=== PATIENT | male | born 1965 | race Caucasian/White ===

== ENCOUNTER 2017-12-28 05:52 | Inpatient (IN) | payer BC, OTHER ==
[2017-12-28] MEDS ORDERED: TRANEXAMIC ACID 1,000 MG in NS (SYRINGE) 50 ML IV ONE (06:00)
[2017-12-28] MEDS ORDERED: *PREOP 1000MG*TRANEX ACID/NS 100 ML IV ONE (06:00)
[2017-12-28] MEDS ORDERED: ceFAZolin 2 GM/DEXTROSE 100 ML IV ONE (06:26)
[2017-12-28] MEDS ORDERED: fentaNYL 50 MCG in SYRINGE INTRATHECAL 1 SYR IT ONE (06:26)
[2017-12-28] MEDS ORDERED: GABAPENTIN 300 MG CAP PO ONE (06:26)
[2017-12-28] MEDS ORDERED: ACETAMINOPHEN 500 MG TAB PO ONE (06:26)
[2017-12-28] MEDS ORDERED: morphINE PF 0.2 MG in SYRINGE INTRATHECAL 1 SYR IT ONE (06:26)
[2017-12-28] MEDS ORDERED: LR 1,000 ML IV ONE (06:33)
[2017-12-28] MEDS ORDERED: CHLORHEXIDINE GLUC HIBICLENS 118 ML BTL TP ONE (06:48)
[2017-12-28] MEDS ORDERED: BUPIVACAINE 0.25% 30 ML SDV ONE (06:48)
[2017-12-28] MEDS ORDERED: THROMBIN (BOVINE) 5,000 UNIT VIAL TP ONE (06:49)
[2017-12-28] MEDS ORDERED: BACITRACIN 50,000 UNITS/10 ML SYR IRR ONE ×2 (06:49→09:20)
[2017-12-28] MEDS ORDERED: EPINEPHrine 1 MG/ML INJ ONE (06:49)
[2017-12-28] MEDS ORDERED: CITRATE DEXTROSE SOLN 500 ML BAG ONE (06:49)
--- NOTE | 2017-12-28 06:50 | PDHPUP ---
History & Physical Update H&P update statement: This history and physical update is based on an assessment of the patient which was completed after admission or registration (within 24 hours), but prior to the surgery/procedure. H&P update: H&P reviewed & patient examined, no change in patient's condition since H&P completed
[2017-12-28] MEDS ORDERED: MIDAZOLAM 2 MG/2 ML VIAL IVP ONE (07:12)
--- NOTE | 2017-12-28 07:13 | PDANEPAE ---
ANE History of Present Illness spinal stenosis ANE Past Medical History - Cardiovascular History Hx Hypertension: No Hx Arrhythmias: No Hx Chest Pain: No Hx Coronary Artery / Peripheral Vascular Disease: No Hx CHF / Valvular Disease: No Hx Palpitations: No - Pulmonary History Hx COPD: No Hx Asthma/Reactive Airway Disease: No Hx Recent Upper Respiratory Infection: No Hx Oxygen in Use at Home: No Hx Sleep Apnea: Yes Sleep Apnea Screening Result - Last Documented: Positive Pulmonary History Comment: [facility]ILSON USES C-PAP INSTRUCTED TO BRING DOS - Neurologic History Hx Cerebrovascular Accident: No Hx Seizures: No Hx Dementia: No - Endocrine History Hx Diabetes: No - Renal History Hx Renal Disorders: No - Liver History Hx Hepatic Disorders: No - Neurological & Psychiatric Hx Hx Neurological and Psychiatric Disorders: No - Cancer History Hx Cancer: No - Congenital Disorder History Hx Congenital Disorders: No - GI History Hx Gastrointestinal Disorders: No - Other Health History Other Health History: POSTERIOR NECK PAIN WITH RADIATION TO SCAPULA AND DOWN BACK OF ARM. STERIOD INJECTION 09/2017. FORAMINAL STENOSIS/DJD. UPPER RT TOOTH IS A CROWN - Chronic Pain History Chronic Pain: Yes (LT LEG) - Surgical History Prior Surgeries: LAMINECTOMIES X3 LAST 2013. RT ANKLE ORIF. RT KNEE SCOPE. NASAL FX ANE Review of Systems Review of Systems: - Exercise capacity METS (RN): 4 METS ANE Patient History - Allergies Allergies/Adverse Reactions: No Known Allergies Allergy (Verified 12/28/17 06:59) - Home Medications Home Medications: Armodafinil [Nuvigil 150mg] 150 mg PO DAILY10 12/14/17 [Last Taken 12/26/17] Herbals/Supplements -Info Only 1 ea PO DAILY 12/14/17 [Last Taken 12/21/17] Naproxen 500 mg PO TID 12/14/17 [Last Taken 12/21/17] buPROPion XL [Wellbutrin Xl] 150 mg PO HS 12/14/17 [Last Taken 12/26/17] - NPO status NPO Since - Liquids (Date): 12/27/17 NPO Since - Liquids (Time): 22:00 NPO Since - Solids (Date): 12/27/17 NPO Since - Solids (Time): 22:00 - Smoking Hx Smoking Status: Former smoker ANE Labs/Vital Signs - Vital Signs Blood Pressure: 129/79 Heart Rate: 77 Respiratory Rate: 16 O2 Sat (%): 99 Height: 172.72 cm Weight: 99.79 kg ANE Physical Exam - Airway Neck exam: FROM Mouth exam: normal dental/mouth exam - Pulmonary Pulmonary: no respiratory distress - Cardiovascular Cardiovascular: regular rate and rhythym - ASA Status ASA Status: II ANE Anesthesia Plan Anesthesia Plan: general endotracheal anesthesia
[2017-12-28] MEDS ORDERED: fentaNYL 100 MCG/2 ML INJ ONE ×3 (07:15→10:41)
[2017-12-28] MEDS ORDERED: HYDROmorphONE/DILAUDID 2 MG/ML INJ ONE ×2 (07:15→11:38)
[2017-12-28] MEDS ORDERED: PROPOFOL 200 MG/20 ML VIAL ONE (07:16)
[2017-12-28] MEDS ORDERED: KETAMINE 500 MG/10 ML VIAL ONE (07:16)
[2017-12-28] MEDS ORDERED: PROPOFOL/EMULSION 500 MG/50 ML BOTTLE IV ONE (07:16)
[2017-12-28] MEDS ORDERED: DEXAMETHASONE 4 MG/ML VIAL ONE (07:19)
[2017-12-28] MEDS ORDERED: ROCURONIUM 50 MG/5 ML VIAL ONE (07:19)
[2017-12-28] MEDS ORDERED: LIDOCAINE 2% 2 ML INJ ONE ×2 (07:19→07:24)
[2017-12-28] MEDS ORDERED: ONDANSETRON 4 MG/2 ML VIAL ONE (07:19)
[2017-12-28] MEDS ORDERED: PROMETHAZINE HCL 25 MG/ML INJ IVP PRN (11:02)
[2017-12-28] MEDS ORDERED: HYDROmorphONE/DILAUDID 1 MG/ML INJ IVP PRN (11:02)
[2017-12-28] MEDS ORDERED: NALOXONE HCL 0.4 MG/ML INJ IVP PRN ×2 (11:02→13:09)
[2017-12-28] MEDS ORDERED: ONDANSETRON 4 MG/2 ML VIAL IVP PRN ×2 (11:02→13:09)
[2017-12-28] MEDS ORDERED: fentaNYL 100 MCG/2 ML INJ IVP PRN (11:02)
[2017-12-28] MEDS ORDERED: diphenhydrAMINE 25 MG CAP PO PRN (13:09)
[2017-12-28] MEDS ORDERED: LACTULOSE 20 GM/30 ML UDCUP PO PRN (13:09)
[2017-12-28] MEDS ORDERED: MAGNESIUM HYDROXIDE 30 ML UDCUP PO PRN (13:09)
[2017-12-28] MEDS ORDERED: BISACODYL 10 MG SUPP PR PRN (13:09)
[2017-12-28] MEDS ORDERED: morphINE PCA 30 MG/30 ML PCA IV PRN (13:09)
[2017-12-28] MEDS ORDERED: NS 1,000 ML IV SCH (13:15)
--- NOTE | 2017-12-28 13:16 | SOAPPROG ---
SOAP Progress Note Assessment/Plan: Assessment: 52 yo sp L3-S1 TLIF Plan: stable to 3N LSO brace when out of bed please call with neuro changes 12/28/17 13:13 Subjective: + back pain, no leg pain Objective: Vital Signs Temp Pulse Resp BP Pulse Ox 36.4 C 77 16 129/79 H 99 12/28/17 06:42 12/28/17 07:13 12/28/17 07:13 12/28/17 07:13 12/28/17 07:13 somnolent PERRL, no facial droop DIMAS x4 + light touch ICD10 Worksheet Patient Problems: Problems Problem Status Onset Fusion of spine of cervical region Acute - ICD10 Problem Qualifiers (1) Fusion of spine of cervical region
--- NOTE | 2017-12-28 13:20 | POSTANESTH ---
Post Anesthetic Evaluation Cardiovascular Status: Normal, Stable Respiratory Status: Normal, Stable Level of Consciousness/Mental Status: Can Participate in Eval Pain Control: Adequate, Prn Tx Ordered Nausea/Vomiting Control: Adequate, Prn Tx Ordered Complications Possibly Related to Anesthesia: None Noted
--- NOTE | 2017-12-28 14:29 | GOP ---
[f rep st] OPERATIVE REPORT DATE OF OPERATION: 12/28/2017 SURGEON: Garrison Duron MD NEUROSURGEON: Garrison Duron. DATA DESIGNER: Justin Fernandes. ANESTHESIA: General endotracheal. PREOPERATIVE DIAGNOSIS: 1. Severe multilevel lumbar degenerative joint disease with severe neuroforaminal encroachment and c entral canal stenosis. 2. Failed back surgery syndrome, status post prior laminectomies and intractable low back pain, and left greater than right lower extremity radicular pain. 3. Failed conservative care. POSTOPERATIVE DIAGNOSIS: 1. Severe multilevel lumbar degenerative joint disease with severe neuroforaminal encroachment and c entral canal stenosis. 2. Failed back surgery syndrome, status post prior laminectomies and intractable low back pain, and left greater than right lower extremity radicular pain. 3. Failed conservative care. PROCEDURE PERFORMED: 1. Left-sided far lateral transpedicular decompression at the L3-4, L4-5, and L5-S1 levels with L3 t hrough S1 posterior segmental (pedicle screw and axial device) fixation and posterolateral fusion wit h local autograft, bone morphogenic protein, and morselized allograft. 2. L3-4, L4-5, and L5-S1 posterior/transforaminal lumbar interbody fusion with 2 structural PEEK int erbody spacers, local autograft, and bone morphogenic protein. 3. Use of intraoperative microscopy, fluoroscopy, and computer volumetric stereotactic navigation wi th intraoperative neurophysiologic testing. 4. Injection of intrathecal narcotic analgesics. FINDINGS: ESTIMATED BLOOD LOSS: 600 cc. INDICATIONS: The patient is a 52-year-old man with a history of prior lumbar laminectomies and intra ctable low back pain and left lower extremity radicular pain secondary to severe multilevel lumbar de generative joint disease and severe/critical neuroforaminal encroachment. He has failed extensive co nservative care and presents now for surgical decompression (redo) and stabilization/fusion. DESCRIPTION OF PROCEDURE: After informed consent was obtained, the patient was taken to the operatin g room, placed in the prone position on the Rikki table. The lumbosacral area was prepped and drap ed in a sterile fashion. After fluoroscopic localization of the correct levels, the subcutaneous and intramuscular tissues were infiltrated with local anesthesia. A midline linear incision was then cr eated over the L3 to S1 spinous processes. This was carried down to the fascial layer which was inci sed using the monopolar electrocautery and carried in the subfascial plane along the spinous processe s, out the lamina bilaterally. Intraoperative fluoroscopy was again utilized to verify the correct l evels. Note that there was only spinous processes at that rostral and caudal ends of the incision, a nd the L3-4 levels had wide laminectomy defects. This made the exposure very difficult and time cons uming, but with meticulous dissection, we did avoid any CSF leaks. Following reverification of the a ppropriate levels, the dissection was carried out over the facet joints. The microscope was then bro ught in and left-sided far lateral transpedicular decompressions were performed at the L3-4, L4-5, an d L5-S1 levels. There was an extensive amount of scar tissue, and the exposure and decompression wer e extremely difficult, the neuroforamen were very tight. Following adequate decompression, the [facility] Neuronavigational System was brought in and using computer volumetric stereotactic navigation, ped icle screws were placed at L3, L4, L5, and S1 bilaterally. Each individual screw was tested neurophy siologically with monopolar electrostimulation and interpretation of the potentials by the surgeon. Serial rods were then placed first at L5-S1, then at L4-5, then at L3-4, during which the levels were individually distracted and complete diskectomies were performed with preparation of the endplates a nd placement of 2 structural PEEK interbody spacers, local autograft, and bone morphogenic protein fo r L3-4, L4-5, and L5-S1 posterior/transforaminal lumbar interbody fusions. The short rods were then removed and longer rods with maximal lordosis were then placed and secured under a slight amount of c ompression in order to facilitate bony union and to minimize the potential for posterior graft migrat ion. 200 mcg of Duramorph along with 50 mcg of fentanyl were then injected intrathecally for postope rative pain control. The remaining lamina and facet joints and transverse processes were then extens ively decorticated, and the residual local autograft along with bone morphogenic protein and morseliz ed autograft were placed out laterally for a posterolateral fusion from L3 to S1. The subcutaneous a nd intramuscular tissues were re-infiltrated with local anesthesia. A drain was placed, and the woun d was closed in a layered fashion using interrupted Vicryl sutures followed by Steri-Strips on the sk in. COMPLICATIONS: None. DISPOSITION: The patient is currently in the process of being repositioned for extubation. /[id number]/MODL
[2017-12-28] MEDS: ACETAMINOPHEN 500 MG TAB PO SCH ×2 (14:51→21:17)
[2017-12-28] MEDS: GABAPENTIN 300 MG CAP PO SCH ×2 (14:51→21:17)
[2017-12-28] MEDS: ceFAZolin 2 GM/DEXTROSE 100 ML IV SCH ×2 (16:53→23:07)
[2017-12-28] MEDS: POLYETHYLENE GLYCOL 3350 17 GM PKT PO SCH ×2 (16:53→21:15)
[2017-12-28] MEDS: ONDANSETRON DISINTEGRATING 4 MG TAB PO PRN (17:25)
[2017-12-28] MEDS: FAMOTIDINE 20 MG TAB PO SCH (21:17)
[2017-12-28] MEDS: buPROPion XL 150 MG TAB PO SCH (21:17)
[2017-12-28] MEDS: SENNOSIDES/DOCUSATE SODIUM TAB PO SCH (21:17)
[2017-12-28] MEDS: morphINE SR 15 MG TAB PO SCH (23:06)
[2017-12-29] MEDS: GABAPENTIN 300 MG CAP PO SCH ×3 (05:06→22:35)
[2017-12-29] MEDS: ACETAMINOPHEN 500 MG TAB PO SCH ×3 (05:51→22:35)
[2017-12-29 06:06] LABS: PLATELET COUNT 132 10^3/uL (150-400)
--- NOTE | 2017-12-29 07:51 | NEUSURGPN ---
Assessment/Plan: Assessment: 52 yo sp L3-S1 TLIF POD#1 Plan: PT/OT and mobilize today Pain management - cont current regimen TEDs, SCDs, lovenox to begin today Brace when OOB Post op xrays pending DC rudolph today Continue SHARONA drain - 500cc out since sx Call NS with any issues D/w Dr Harris Subjective: Pt resting in bed, slept well. Chart reviewed and d/w RN. Objective: AAOx3 NAD VSS MAEx4 Motor 5/5 BLE +LT Sharona drain serosang Urinary Catheter in Place: Yes Urinary Catheter Indication: Other (Use Comment) (to be removed today) Catheter Insertion Date: 12/28/17 - Physician Discussed Patient with : Oliverio Neurosurgery Physical Exam - Vitals, I&O, Labs I and O 12/28/17 12/29/17 12/30/17 05:59 05:59 05:59 Intake Total 2900 Output Total 4550 325 Balance -1650 -325 Weight 99.79 kg Intake: Oral (ml) 2900 Output: Urine (ml) 3325 300 Catheter 3325 300 Estimated Blood Loss (ml) 750 SHARONA Drain Output (ml) 475 25 #1 Left Posterior Back 475 25 Rikki Calix Vital Signs Temp Pulse Resp BP Pulse Ox 36.7 C 83 16 98/57 L 100 12/29/17 04:00 12/29/17 04:00 12/29/17 04:00 12/29/17 04:00 12/29/17 04:00 Laboratory Results 12/29/17 04:35 12/29/17 04:35 ICD10 Worksheet Patient Problems: Problems Problem Status Onset Fusion of spine of cervical region Acute
[2017-12-29] MEDS ORDERED: NS 500 ML IV PRN (07:53)
[2017-12-29] MEDS: POLYETHYLENE GLYCOL 3350 17 GM PKT PO SCH ×3 (09:26→22:37)
[2017-12-29] MEDS: SENNOSIDES/DOCUSATE SODIUM TAB PO SCH ×2 (09:26→22:34)
[2017-12-29] MEDS: FAMOTIDINE 20 MG TAB PO SCH ×2 (09:27→22:36)
[2017-12-29] MEDS: ENOXAPARIN 40 MG/0.4 ML SYR SC SCH (09:27)
[2017-12-29] MEDS: morphINE SR 15 MG TAB PO SCH (09:46)
--- NOTE | 2017-12-29 10:17 | ASMTCMCOM ---
CM Note CM Note Notes: Patient is POD 1 L3-S1 TLIF. He is normally independent - lives with and is employed. OT has cleared him for home; PT eval pending. Patient is amenable to home care if recommended. Case Management will follow. Current CM Discharge plan: home independent v home PT Date Signed: 12/29/2017 10:16 AM Electronically Signed By:Deidre Bueno RN
[2017-12-29] MEDS: Armodafinil [Nuvigil 150mg] 150 MG PO SCH (10:54)
[2017-12-29] MEDS: METHOCARBAMOL 750 MG TAB PO PRN ×2 (10:54→18:40)
--- NOTE | 2017-12-29 12:16 | PDMN ---
Medical Necessity Medical necessity: Pt meets INPT criteria [place] [facility] [place]bar [place] ( INPT only surgery).
[2017-12-29] MEDS: oxyCODONE IR 5 MG TAB PO PRN ×4 (15:04→22:38)
[2017-12-29] MEDS: buPROPion XL 150 MG TAB PO SCH (22:34)
[2017-12-30] MEDS: METHOCARBAMOL 750 MG TAB PO PRN ×4 (05:15→21:54)
[2017-12-30] MEDS: GABAPENTIN 300 MG CAP PO SCH ×3 (05:16→21:55)
[2017-12-30] MEDS: ACETAMINOPHEN 500 MG TAB PO SCH ×3 (05:18→22:33)
[2017-12-30] MEDS: ENOXAPARIN 40 MG/0.4 ML SYR SC SCH (08:39)
[2017-12-30] MEDS: oxyCODONE IR 5 MG TAB PO PRN ×3 (08:40→19:42)
[2017-12-30] MEDS: SENNOSIDES/DOCUSATE SODIUM TAB PO SCH ×2 (08:42→19:43)
[2017-12-30] MEDS: POLYETHYLENE GLYCOL 3350 17 GM PKT PO SCH ×3 (08:42→21:55)
[2017-12-30] MEDS: FAMOTIDINE 20 MG TAB PO SCH ×2 (08:42→19:43)
[2017-12-30] MEDS: Armodafinil [Nuvigil 150mg] 150 MG PO SCH (08:48)
--- NOTE | 2017-12-30 10:07 | SOAPPROG ---
SOAP Progress Note Assessment/Plan: Assessment: 52 yo POD #2 L3-S1 TLIF Plan: stable and doing well overall :) PT/OT SHARONA x 1 LSO brace when out of bed post op x-rays look great scd/nae/lovenox for dvt prophylaxis dc home later today if constipation improves please call with neuro changes discussed with Dr Rae 12/28/17 13:13 12/30/17 10:05 Subjective: back pain improving, leg pain better than before surgery, no weakness. Objective: Vital Signs Temp Pulse Resp BP Pulse Ox 36.6 C 83 16 137/79 H 90 L 12/30/17 08:00 12/30/17 08:00 12/30/17 08:00 12/30/17 08:00 12/30/17 08:00 Laboratory Results 12/29/17 04:35 12/29/17 04:35 12/29/17 12/30/17 12/31/17 05:59 05:59 05:59 Intake Total 2900 2900 Output Total 4550 1980 40 Balance -1650 920 -40 AAOx4, +FC PERRL, EOMI, no facial droop 5/5 + Light touch C/D/I ICD10 Worksheet Patient Problems: Problems Problem Status Onset Fusion of spine of cervical region Acute - ICD10 Problem Qualifiers (1) Fusion of spine of cervical region
[2017-12-30] MEDS: buPROPion XL 150 MG TAB PO SCH (19:42)
[2017-12-31] MEDS: oxyCODONE IR 5 MG TAB PO PRN ×6 (01:25→23:50)
[2017-12-31] MEDS: ACETAMINOPHEN 500 MG TAB PO SCH ×3 (06:19→23:03)
[2017-12-31] MEDS: GABAPENTIN 300 MG CAP PO SCH ×3 (06:20→22:09)
--- NOTE | 2017-12-31 08:53 | SOAPPROG ---
SOAP Progress Note Assessment/Plan: Assessment: 52 yo POD #3 L3-S1 TLIF Plan: stable and doing well overall :) Will follow left groin pain to see if this improves over the course of they day. If not, then we will get a CT scan of lumbar spine. PT/OT SHARONA x 1 LSO brace when out of bed post op x-rays look great scd/nae/lovenox for dvt prophylaxis dc home later today if constipation improves please call with neuro changes discussed with Dr Rae 12/28/17 13:13 12/30/17 10:05 12/31/17 08:52 Subjective: back pain improving, pain in left groin. no leg weakness. Objective: Vital Signs Temp Pulse Resp BP Pulse Ox 37.3 C 99 14 109/72 95 12/31/17 08:00 12/31/17 08:00 12/31/17 08:00 12/31/17 08:00 12/31/17 08:00 Laboratory Results 12/29/17 04:35 12/29/17 04:35 12/30/17 12/31/17 01/01/18 05:59 05:59 05:59 Intake Total 2900 1950 Output Total 1980 100 Balance 920 1850 AAOx4, +FC PERRL, No facial droop 5/5 + light touch C/D/I ICD10 Worksheet Patient Problems: Problems Problem Status Onset Fusion of spine of cervical region Acute - ICD10 Problem Qualifiers (1) Fusion of spine of cervical region
[2017-12-31] MEDS: FAMOTIDINE 20 MG TAB PO SCH ×2 (09:53→20:06)
[2017-12-31] MEDS: POLYETHYLENE GLYCOL 3350 17 GM PKT PO SCH ×3 (09:53→22:08)
[2017-12-31] MEDS: METHOCARBAMOL 750 MG TAB PO PRN ×3 (09:53→20:07)
[2017-12-31] MEDS: SENNOSIDES/DOCUSATE SODIUM TAB PO SCH ×2 (09:53→20:06)
[2017-12-31] MEDS: Armodafinil [Nuvigil 150mg] 150 MG PO SCH (10:04)
[2017-12-31] MEDS: ENOXAPARIN 40 MG/0.4 ML SYR SC SCH (12:15)
[2017-12-31] MEDS: buPROPion XL 150 MG TAB PO SCH (20:06)
[2017-12-31] MEDS: ONDANSETRON DISINTEGRATING 4 MG TAB PO PRN (23:49)
[2018-01-01] MEDS: GABAPENTIN 300 MG CAP PO SCH (06:06)
[2018-01-01] MEDS: ACETAMINOPHEN 500 MG TAB PO SCH (06:06)
[2018-01-01] MEDS: oxyCODONE IR 5 MG TAB PO PRN ×2 (06:23→09:16)
--- NOTE | 2018-01-01 06:53 | SOAPPROG ---
SOAP Progress Note Assessment/Plan: Assessment: 52 yo POD #4 L3-S1 TLIF Plan: stable and doing well overall groin pain improved since yesterday, will continue to follow CT shows good position of hardware PT/OT SHARONA x 1 LSO brace when out of bed post op x-rays look great scd/nae/lovenox for dvt prophylaxis dc home later today if constipation improves please call with neuro changes discussed with Dr Harris 12/28/17 13:13 12/30/17 10:05 12/31/17 08:52 01/01/18 06:52 Subjective: back pain and groin pain improving, no weakness. Objective: Vital Signs Temp Pulse Resp BP Pulse Ox 36.9 C 88 18 152/82 H 92 12/31/17 23:42 12/31/17 23:42 12/31/17 23:42 12/31/17 23:42 12/31/17 23:42 Laboratory Results 12/29/17 04:35 12/29/17 04:35 12/31/17 01/01/18 01/02/18 05:59 05:59 05:59 Intake Total 1950 750 Output Total 100 60 Balance 1850 690 AAOx4, +FC PERRL, no facial droop 5/5 + light touch C/D/I ICD10 Worksheet Patient Problems: Problems Problem Status Onset Fusion of spine of cervical region Acute - ICD10 Problem Qualifiers (1) Fusion of spine of cervical region
[2018-01-01 08:45] VITALS: BP 145/90
[2018-01-01] MEDS: ENOXAPARIN 40 MG/0.4 ML SYR SC SCH (09:00)
[2018-01-01] MEDS: POLYETHYLENE GLYCOL 3350 17 GM PKT PO SCH (09:01)
[2018-01-01] MEDS: FAMOTIDINE 20 MG TAB PO SCH (09:01)
[2018-01-01] MEDS: SENNOSIDES/DOCUSATE SODIUM TAB PO SCH (09:03)
[2018-01-01] MEDS: Armodafinil [Nuvigil 150mg] 150 MG PO SCH (09:18)
--- NOTE | 2018-01-01 10:56 | ASMTLACE ---
LACE Length of stay for Answers: 4-6 days current admission Acuity / Level of Answers: Yes Care: Did the patient have an inpatient admission? Comorbidities - select Answers: Opioid dependence all that apply / Chronic pain # of Emergency department Answers: 0 visits in the last 6 months Score: 11 Date Signed: 01/01/2018 10:55 AM Electronically Signed By:JOS Hagan
--- NOTE | 2018-01-01 16:58 | ASMTCMCOM ---
CM Note CM Note Notes: PT rec home. Pt medically stable for d/c with family support. No CM d/c needs identified. Date Signed: 01/01/2018 04:49 PM Electronically Signed By:JOS Hagan
--- NOTE | 2018-01-03 15:01 | GDS ---
[f rep st] DISCHARGE SUMMARY ADMISSION DIAGNOSIS: Lumbar degenerative joint disease and stenosis. DISCHARGE DIAGNOSIS: L3-S1 transforaminal lumbar interbody fusion. HISTORY AND PHYSICAL: Please see admission history and physical. HOSPITAL COURSE: The patient is a 52-year-old male who presented with severe lumbar degenerative dis ease and stenosis with lower extremity radiculopathy. He was taken to the operating room on 12/29/19, where he underwent an L3-4, L4-5, and L5-S1 transforaminal lumbar interbody fusion. There were n o intraoperative complications. He was admitted to the floor for observation. On the floor, he was tolerating a regular diet and his pain was controlled with p.o. pain medication. His postop x-ray on 12/29/2017, showed good position of the hardware. He was developing some left groin pain, and on 12/30/2017, underwent a CT scan of the cervical spine. This demonstrated good position of the hardware from L3-S1. His pain continued to slowly improve, and he was discharged home in stable condition on 01/01/2018. Patient was dischar [facility] with lumbar fusion instructions and recommended he return for neurosurgical followup appointment in 10-14 days. /[id number]/MODL
== END 2018-01-01 12:32 | disposition home or self-care (01) | DRG 460 ==
LOC: F3N 05:52
PROVIDERS: ADMIT Neurological Surgery; ATTEND Neurological Surgery
PROC: 0ST40ZZ Resection of Lumbosacral Disc, Open Approach (ICD-10-PCS; principal; 2017-12-28 07:15)
PROC: 00NY0ZZ Release Lumbar Spinal Cord, Open Approach (ICD-10-PCS; principal; 2017-12-28 07:15)
PROC: 0ST20ZZ Resection of Lumbar Vertebral Disc, Open Approach (ICD-10-PCS; principal; 2017-12-28 07:15)
PROC: 8E0WXBZ Computer Assisted Procedure of Trunk Region (ICD-10-PCS; principal; 2017-12-28 07:15)
PROC: B01B1ZZ Fluoroscopy of Spinal Cord using Low Osmolar Contrast (ICD-10-PCS; principal; 2017-12-28 07:15)
PROC: 0SG30AJ Fusion of Lumbosacral Joint with Interbody Fusion Device, Posterior Approach, Anterior Column, Open Approach (ICD-10-PCS; principal; 2017-12-28 07:15)
PROC: 0SG10AJ Fusion of 2 or more Lumbar Vertebral Joints with Interbody Fusion Device, Posterior Approach, Anterior Column, Open Approach (ICD-10-PCS; principal; 2017-12-28 07:15)
PROC: 4A10X4G Monitoring of Central Nervous Electrical Activity, Intraoperative, External Approach (ICD-10-PCS; principal; 2017-12-28 07:15)
DX: M48.062 Spinal stenosis, lumbar region with neurogenic claudication (principal); M51.16 Intervertebral disc disorders with radiculopathy, lumbar region; G47.33 Obstructive sleep apnea (adult) (pediatric); M54.2 Cervicalgia; Z87.891 Personal history of nicotine dependence
CPT/HCPCS: 97116-GP; 97161-GP; 97166-GO; 97530-GP; 97535-GO; C1713; J0171; J0690; J1100; J1170; J1650; J2250; J2274; J2405; J2704; J3010; J7060

== ENCOUNTER → 2018-03-30 | Outpatient (CLI) | payer BC | LOC: FLAB 13:11 | PROVIDERS: ATTEND Physician Assistant Surgical | DX: Z47.1 Aftercare following joint replacement surgery (principal); Z98.1 Arthrodesis status ==

== ENCOUNTER → 2018-07-13 | Outpatient (CLI) | payer BC | LOC: FIMAGING 08:28 | PROVIDERS: ATTEND Physician Assistant Surgical | DX: M43.26 Fusion of spine, lumbar region (principal) ==